=== PATIENT | female | born 1990 | race African-American/Black ===

== ENCOUNTER 2016-09-16 22:26 | Emergency (ER) | payer OTHER ==
[~2016-09-16] VITALS: Ht 167.6 cm; Wt 55.3 kg
[2016-09-16 23:00] VITALS: BP 125/89
== END 2016-09-17 02:00 | disposition left against medical advice (07) ==
LOC: EDBD 22:41 → ER 22:41
DX: J02.9 Acute pharyngitis, unspecified (principal); Z53.21 Procedure and treatment not carried out due to patient leaving prior to being seen by health care provider

== ENCOUNTER 2018-09-29 08:28 | Emergency (ER) | payer OTHER ==
[~2018-09-29] VITALS: Ht 170.2 cm; Wt 59.4 kg
[2018-09-29 09:35] LABS: Urine Bacteria NONE SEEN /hpf (None Seen); Urine Blood Negative /uL (Negative); Urine Mucus FEW (None Seen); Urine Specific Gravity 1.019 (1.001-1.035); Urine WBC 1 /hpf (0 - 5)
[2018-09-29 10:40] VITALS: BP 110/73
== END 2018-09-29 11:02 | disposition home or self-care (01) ==
LOC: ER 08:28
DX: O26.892 Other specified pregnancy related conditions, second trimester (principal); R10.9 Unspecified abdominal pain; R11.0 Nausea; R06.02 Shortness of breath; Z3A.17 17 weeks gestation of pregnancy
CPT/HCPCS: 36415; 76805; 81001; 84702; 93005

== ENCOUNTER 2019-02-12 13:12 | Observation (INO) | payer OTHER ==
[2019-02-12] MEDS ORDERED: PREN-96 PO (14:28)
== END 2019-02-12 16:12 | disposition home or self-care (01) | DRG 566 ==
LOC: LDRP 13:12
PROVIDERS: ADMIT Specialist; ATTEND Specialist
DX: O62.9 Abnormality of forces of labor, unspecified (principal); O46.93 Antepartum hemorrhage, unspecified, third trimester; Z3A.37 37 weeks gestation of pregnancy
CPT/HCPCS: 59025; 76815; 81002; G0378